=== PATIENT | female | born 1975 | race Caucasian/White ===

== ENCOUNTER 2018-02-04 22:53 | Emergency (ER) | payer MEDICAID, OTHER ==
[2018-02-05] MEDS: KETOROLAC 15 MG INJ IM (02:50)
[2018-02-05] MEDS: DIAZEPAM 5 MG TAB PO (02:50)
[2018-02-05 02:56] LABS: URINE BLOOD (Dip) POC 3+ (NEGATIVE); URINE GLUCOSE (Dip) POC Negative (NEGATIVE); URINE KETONES (Dip) POC Trace (NEGATIVE); URINE LEUKOCYTE EST (Dip) POC Trace (NEGATIVE); URINE NITRITE (Dip) POC Negative (NEGATIVE); URINE TOTAL PROTEIN POC 1+ (NEGATIVE)
[2018-02-05 02:56] LABS: URINE PH (Dip) POC 5.5 (5.0-8.5)
[2018-02-05] MEDS: IBUPROFEN 600 MG TAB PO (03:04)
== END 2018-02-05 03:44 | disposition home or self-care (01) ==
LOC: FTE 22:53
DX: M54.5 Low back pain (principal); G89.29 Other chronic pain
CPT/HCPCS: 81003; 81025; 99282